=== PATIENT | female | born 1970 | race African-American/Black ===

== ENCOUNTER → 2018-06-16 | Day surgery (SDC) | payer OTHER ==
[~2018-06-16] MED LIST: ALLEGRA30 MG PO; ERYTHROMYCIN60 ML TOP; FUROSEMIDE PO; HYDROCODON-ACE1 EACH PO; NORCO 5-325 TA1 EACH PO; PRINIVIL PO
[2018-06-16 08:38] LABS: HEMATOCRIT 41.4 % (37.0-47.0); HEMOGLOBIN 13.5 gm/dL (12.0-15.0); MCH 30.1 pg (26.0-34.0); MCHC 32.7 g/dL (28.0-37.0); MCV 92.2 fL (80.0-100.0); MPV 9.1 fl. (7.2-11.1); RBC 4.49 mil/uL (4.20-5.00); RDW-CV 13.2 % (10.5-14.5); WBC 7.4 thou/uL (4.0-11.0)
[2018-06-16 08:46] LABS: CALCIUM 9.3 mg/dL (8.5-10.1); CREATININE 0.7 mg/dL (0.6-1.3); POTASSIUM 3.9 mmol/L (3.5-5.1)
--- NOTE | 2018-06-17 17:00 | EKG ---
[place] [address] ELECTROCARDIOGRAM REPORT Name: BRENTON MELISSARIMMATHERESA CASTRO JULES Room: [facility]#: [id number] Admission: 06/16/18 Attend Phys: Gab Rosas Discharge: Date of : 72 Report #: [id number] THIS REPORT FOR: //name// [facility] Test Date: 2018-06-16 Test Time: 08:49:03 Pat Name: MODESTA MELISSA Department: Room: Gender: F Flight Attendant: [facility] : 1970 Requested By: Gab Rosas Order Number: [id number] Rei MD: Rigo Lorenzo Measurements Intervals Ringle Rate: 68 P: 47 TN: 156 QRS: 43 QRSD: 92 T: 51 QT: 408 QTc: 434 Interpretive Statements Sinus rhythm Compared to ECG 07/25/2011 13:10:00 No significant changes Electronically Signed On 06-17-2018 16:59:54 CDT by Rigo Lorenzo [email or web address] <ELECTRONICALLY SIGNED> By: Rigo Lorenzo MD, [facility] 06/17/18 1659 0849 [id number] Rigo Lorenzo MD, FACC /EPI
--- NOTE | 2018-07-07 07:41 | OP ---
[facility] [address] [place] [address] OPERATIVE REPORT Name: BRENTON MELISSAPRINCESS MATTHEW FROST Room: [facility] Morales#: [id number] Admission: 06/16/18 Attend Phys: Gab Rosas Discharge: Date of : 72 Report #: [id number] THIS REPORT FOR: //name// CC: Suyapaemerald Ramírezaugustin Rosas DATE OF SERVICE: 06/16/2018 PREOPERATIVE DIAGNOSES: 1. Benign abdominal mass, 3 cm. 2. Right breast mass with abscess. POSTOPERATIVE DIAGNOSES: 1. Benign abdominal mass, 3 cm. 2. Right breast mass with abscess. OPERATION: 1. Excision of a benign umbilical mass, 3 cm. 2. Excision of right breast mass. SURGEON: Gab Rosas M.D. ANESTHESIA: General. ESTIMATED BLOOD LOSS: Minimal. SPECIMENS: 1. Umbilical mass. 2. Right breast mass. 3. Abscess fluid for culture and sensitivity. DESCRIPTION OF PROCEDURE: After informed consent was obtained, the patient was brought to the operating room and placed supine. SCDs were placed and working, preoperative antibiotics were administered and general anesthesia was induced. The abdomen and right breast were prepped and draped in the usual sterile fashion. The mass at the umbilicus was first grasped and retracted anteriorly. This allowed visualization of the base of the mass. This had a wide base. I used cautery to dissect around the mass. I then went deep to the skin and the mass protruded below the skin as well. This was somewhat firm and appeared to be hypertrophic scar. This was carefully dissected around to healthy fat on all sides. The mass was then removed. The area was then packed with sterile gauze. Attention was then directed to the right breast. Elliptical 3-cm incision was made in the right breast, just above [place] [address] OPERATIVE REPORT Name: MODESTA MELISSA Room: [facility]#: [id number] Admission: 06/16/18 Attend Phys: Gab Rosas Discharge: Date of : 72 Report #: [id number] dissection was made around to the healthy fat. There was a small amount of turbid fluid and this was cultured. Mass was then removed. It measured approximately 3 x 1 x 2 cm. The area was then packed with sterile gauze. COMPLICATIONS: None. DISPOSITION: The patient was taken to recovery in satisfactory condition. <ELECTRONICALLY SIGNED> By: Gab Rosas MD 07/07/18 0741 1013 1117Gab Rosas MD /nt
--- NOTE | 2018-07-11 14:59 | PATH ---
[facility] [address] [place] [address] PATHOLOGY RPT PROCEDURE Name: BRENTON MELISSAPRINCESS MATTHEW JULES Room: [facility] Morales#: [id number] Admission: 06/16/18 Date of : 72 Discharge: Report #: [id number] Path Case #: [id number] [facility] Accession Number: [id number] . 01 Material submitted: . PART A: ABDOMINAL MASS PART B: RIGHT BREAST MASS . 01 Clinical history: . Breast mass and umbilical mass . 02 Diagnosis: A. Abdominal mass: - Skin with fibroepithelial polyps and underlying extensive endometriosis. - Negative for malignancy. . B. Right breast mass: - Skin with ulceration, adjacent epidermal inclusion cyst, and extensive dermal and subcutaneous acute and chronic inflammation. - Negative for malignancy. . (MAP:[facility]; 06/18/2018) [facility]/06/18/2018 . 02 Comment: Co-review with Dr. Gonzalez. . ([place]18/2018) . 02 Electronically signed: . Lars Damico MD, Pathologist NPI- [id number] . 01 Gross description: . A. The specimen is received in formalin, labeled "Andres Melissa, abdominal mass", is a circular, dark brown indurated tissue measuring 3.0 3.0 x 3.0 x 1.5 cm with a central longitudinal defect. The skin surface contains three possible skin tags ranging from 0.1 cm up to 0.6 cm in greatest dimension. The specimen is inked black, serially sectioned to reveal a predominantly andrew-white cut surface with hemorrhagic foci. Also received is a roughly circular kelly-white, fibrous indurated soft tissue measuring 3.0 x 2.5 x 0.6 cm. Serially sectioned to show a kelly-white cut surface with hemorrhagic foci. Bid Clerk tissue is submitted in A1-A5. (A1-A4 = skin with possible skin tag and A5 = additional portion of tissue) . B. The specimen is received in formalin, labeled "Andres Melissa, right breast mass", is an unoriented ellipse of dark brown skin 3.0 x 1.4 [place] [address] PATHOLOGY RPT PROCEDURE Name: MODESTA MELISSA [facility] Room: [facility].#: [id number] Admission: 06/16/18 Date of : 72 Discharge: Report #: [id number] Path Case #: [id number] excised to a maximum depth of 1.7 cm. The skin surface has a 0.7 x 0.2 cm ulcer with hemorrhagic ulcer bed. The specimen is inked black, serially sectioned to show a yellow homogeneous cut surface with kelly-white fibrous strands interspersed. Bid Clerk tissue is submitted in B1-B3. (SWS; 06/17/2018) SHS/SHS . 02 Pathologist provided ICD-10: N80.9, L91.8, L98.499, L72.0, L08.9 . 02 CPT . 119942, 417181 Specimen Comment: Report sent to / DR MONTES DE OCA Performed at: [address], [place] [id number] MD Bryant Schmidt MD Phone: [phone] Performed at: 02 [facility] [address], [place], [place] [id number] MD Pop Zhu MD Phone: [phone]
== END | disposition home or self-care (01) ==
LOC: M.SUR 06:19
PROVIDERS: Surgery
DX: L72.0 Epidermal cyst (principal); L91.8 Other hypertrophic disorders of the skin; N61.1 Abscess of the breast and nipple; L98.499 Non-pressure chronic ulcer of skin of other sites with unspecified severity; N80.9 Endometriosis, unspecified; I10 Essential (primary) hypertension; Z88.0 Allergy status to penicillin; Z79.891 Long term (current) use of opiate analgesic; Z79.899 Other long term (current) drug therapy; Z98.890 Other specified postprocedural states

== ENCOUNTER 2020-02-09 15:16 | Emergency (ER) | payer BC ==
[~2020-02-09] VITALS: Ht 157.5 cm; Wt 91.6 kg
[2020-02-09 16:13] LABS: ABSOLUTE BASOPHILS 0.1 thou/uL (0.0-0.2); ABSOLUTE EOSINOPHILS 0.1 thou/uL (0.0-0.7); ABSOLUTE LYMPHOCYTES 2.2 thou/uL (0.8-5.3); ABSOLUTE MONOCYTES 0.7 thou/uL (0.0-1.2); ABSOLUTE NEUTROPHILS 4.9 thou/uL (1.6-8.1); BASOPHILS 1.1 %; EOSINOPHILS 1.3 %; HEMATOCRIT 38.5 % (37.0-47.0); HEMOGLOBIN 13.2 gm/dL (12.0-15.0); LYMPHOCYTES 27.4 %; MCH 31.1 pg (26.0-34.0); MCHC 34.2 g/dL (28.0-37.0); MCV 90.8 fL (80.0-100.0); MONOCYTES 8.6 %; MPV 10.1 fl. (7.2-11.1); NUCLEATED RBCS 0 /100WBC; PLATELET COUNT* 237 thou/uL (150-400); POLYS 61.6 %; RBC 4.25 mil/uL (4.20-5.00); RDW-CV 13.2 % (10.5-14.5); WBC 7.9 thou/uL (4.0-11.0)
[2020-02-09 16:16] LABS: CALCIUM 8.4 mg/dL (8.5-10.1); CREATININE 0.8 mg/dL (0.6-1.3); POTASSIUM 3.6 mmol/L (3.5-5.1)
[2020-02-09 16:21] LABS: ALBUMIN 3.8 g/dL (3.4-5.0); TOTAL BILIRUBIN 0.5 mg/dL (<0.1-1.0); TOTAL PROTEIN 8.2 g/dL (6.4-8.2)
[2020-02-09] MEDS ORDERED: BUTALB-APAP-CA1 EACH PO (17:20)
[2020-02-09] MEDS ORDERED: PHENERGAN 25 MG25 M1 PO (17:23)
[2020-02-09 18:04] VITALS: BP 135/85
== END 2020-02-09 18:05 | disposition home or self-care (01) ==
LOC: M.ERS 15:16
PROVIDERS: Family Medicine
DX: G43.009 Migraine without aura, not intractable, without status migrainosus (principal); G44.89 Other headache syndrome; I10 Essential (primary) hypertension; Z90.710 Acquired absence of both cervix and uterus; Z88.1 Allergy status to other antibiotic agents; J45.909 Unspecified asthma, uncomplicated